=== PATIENT | female | born 1990 | race Two or more races ===

== ENCOUNTER 2018-11-17 16:31 | Emergency (ER) | payer SELFPAY ==
--- NOTE | 2018-11-17 16:53 | ER Document Report ---
ED Medical Screen (RME) - General Chief Complaint: Facial Swelling Stated Complaint: FACIAL SWELLING Time Seen by Provider: 11/17/18 16:35 Mode of Arrival: Ambulatory Information source: Patient Notes: 28-year-old female presented to ED for abscess to the forehead. states she popped a pimple about 2 days ago. Patient states that she developed pain over the last 2 days it is increased and then today her face started becoming very red and swollen. She states the pain is very bad at this time. Patient is alert oriented respirations regular and unlabored speaking in full sentences walks with even steady gait. Patient states she does not smoke drink or do any drugs. She has no past medical or surgical history. Patient has no allergies. I have greeted and performed a rapid initial assessment of this patient. A comprehensive ED assessment and evaluation of the patient, analysis of test results and completion of medical decision making process will be conducted by an additional ED providers. - Related Data Allergies/Adverse Reactions: No Known Allergies Allergy (Verified 11/17/18 16:47) Physical Exam - Vital signs Vitals: Temp Pulse Resp BP Pulse Ox 98.3 F 76 16 115/85 99 11/17/18 16:37 11/17/18 16:37 11/17/18 16:37 11/17/18 16:37 11/17/18 16:37 Course - Vital Signs Vital signs: Temp Pulse Resp BP Pulse Ox 98.3 F 76 16 115/85 99 11/17/18 16:37 11/17/18 16:37 11/17/18 16:37 11/17/18 16:37 11/17/18 16:37
[2018-11-17 17:24] LABS: ABSOLUTE BASOPHILS # (AUTO) 0.1 10^3/uL (0.0-0.2); ABSOLUTE EOSINOPHILS # (AUTO) 0.3 10^3/uL (0.0-0.6); ABSOLUTE LYMPHOCYTES (AUTO) 1.9 10^3/uL (0.5-4.7); ABSOLUTE MONOCYTES (AUTO) 0.7 10^3/uL (0.1-1.4); ABSOLUTE NEUT (AUTO) 7.3 10^3/uL (1.7-8.2); BASOPHILS % (AUTO) 0.7 % (0-2); EOSINOPHILS % (AUTO) 2.7 % (0-6); HEMATOCRIT 44.1 % (36.0-47.0); HEMOGLOBIN 14.9 g/dL (12.0-15.5); MEAN CORPUSCULAR HEMOGLOBIN 29.5 pg (27.0-33.4); MEAN CORPUSCULAR HGB CONC 33.7 g/dL (32.0-36.0); MEAN CORPUSCULAR VOLUME 87 fl (80-97); MONOCYTES % (AUTO) 6.7 % (3-13); PLATELET COUNT 229 10^3/uL (150-450); RED BLOOD COUNT 5.05 10^6/uL (3.72-5.28); RED CELL DISTRIBUTION WIDTH 14.2 % (11.5-14.0); SEGMENTED NEUTROPHILS % (AUTO) 70.9 % (42-78); TOTAL CELLS COUNTED % (AUTO) 100 %; WHITE BLOOD COUNT 10.3 10^3/uL (4.0-10.5)
[2018-11-17 17:44] LABS: ALBUMIN 4.5 g/dL (3.5-5.0); ALKALINE PHOSPHATASE 57 U/L (38-126); ANION GAP 8 (5-19); ASPARTATE AMINO TRANSFERASE 18 U/L (14-36); BILIRUBIN,TOTAL 0.4 mg/dL (0.2-1.3); BLOOD UREA NITROGEN 13 mg/dL (7-20); CALCIUM 9.6 mg/dL (8.4-10.2); CARBON DIOXIDE 29 mmol/L (22-30); CHLORIDE 101 mmol/L (98-107); GLUCOSE 90 mg/dL (75-110); POTASSIUM 4.1 mmol/L (3.6-5.0); TOTAL PROTEIN 7.8 g/dL (6.3-8.2)
--- NOTE | 2018-11-17 18:06 | RADIOLOGY REPORT (SQ) ---
EXAM DESCRIPTION: CT FACIAL AREA WITH COMPLETED DATE/TIME: 11/17/2018 5:39 pm REASON FOR STUDY: facial cellulitis COMPARISON: None. TECHNIQUE: Post contrast images through the facial bones and orbits windowed for bone and soft tissu e. Additional coronal and sagittal reconstructed images reviewed. All images stored on PACS. All CT scanners at this facility use dose modulation, iterative reconstruction, and/or weight based d osing when appropriate to reduce radiation dose to as low as reasonably achievable (ALARA). [facility]: Dose Right [facility]: CareDose [facility]: Dose Right [facility]: Teradose 4D [facility]: AdaptiveBlue CONTRAST TYPE AND DOSE: contrast/concentration: Isovue 350.00 mg/ml; Total Contrast Delivered: 50.0 ml; Total Saline Delivered: 50.0 ml RENAL FUNCTION: GFR > 60. RADIATION DOSE: CT Rad equipment meets quality standard of care and radiation dose reduction techniq ues were employed. CTDIvol: 30.4 mGy. DLP: 566 mGy-cm. . LIMITATIONS: None. FINDINGS: FACIAL BONES: No fracture. ORBITS: Intact. The globes, extraocular muscles, and optic nerve sheath complexes are symmetric and normal in appearance. PARANASAL SINUSES: Clear. There is no paranasal sinus air-fluid level. SOFT TISSUES: Mild skin thickening and mild subcutaneous fat stranding over the frontal sinuses ; the re is no rim enhancing collection in the area. INFERIOR BRAIN: No acute findings. OTHER: No other finding. IMPRESSION: Mild skin thickening and mild subcutaneous fat stranding over the frontal sinuses ; ther e is no rim enhancing collection in the area. TECHNICAL DOCUMENTATION: JOB ID: [id number] Quality ID # [id number]: Final reports with documentation of one or more dose reduction techniques (e.g., Au tomated exposure control, adjustment of the mA and/or kV according to patient size, use of iterative reconstruction technique) 2010 [employer]- All Rights Reserved Reading location - IP/workstation name: [email or web address]
--- NOTE | 2018-11-17 18:30 | ER Document Report ---
ED Skin Rash/Insect Bite/Abscs - General Chief Complaint: Abscess Stated Complaint: FACIAL SWELLING Time Seen by Provider: 11/17/18 16:35 Mode of Arrival: Ambulatory Notes: Patient is a 28-year-old female presents to the emergency department with a chief complaint of facial pain. Patient reports 2 to 3 days ago she had a pimple on the center of her forehead in between her eyebrows. Patient reports that over the past few days is gotten more swollen and tender. Patient reports that she has had some swelling noted around her eyes. Patient denies visual changes. Patient denies fever. Patient reports that she has not taken anything for the pain. Patient denies nasal drainage. Patient reports having a frontal headache around the site of possible infection. Patient denies chills. She denies drainage from the pimple. - Related Data Allergies/Adverse Reactions: No Known Allergies Allergy (Verified 11/17/18 16:47) Past Medical History - General Information source: Patient - Social History Smoking Status: Never Smoker Frequency of alcohol use: None Drug Abuse: None Lives with: Spouse/Significant other Family History: None Patient has suicidal ideation: No Patient has homicidal ideation: No - Past Medical History Cardiac Medical History: Reports: None Pulmonary Medical History: Reports: None EENT Medical History: Reports: None Neurological Medical History: Reports: None Endocrine Medical History: Reports: None Renal/ Medical History: Reports: None Malignancy Medical History: Reports: None GI Medical History: Reports: None Musculoskeletal Medical History: Reports None Skin Medical History: Reports None Psychiatric Medical History: Reports: None Traumatic Medical History: Reports: None Infectious Medical History: Reports: None Surgical Hx: Negative Review of Systems - Review of Systems Constitutional: No symptoms reported EENT: See HPI Cardiovascular: No symptoms reported Respiratory: No symptoms reported Gastrointestinal: No symptoms reported Genitourinary: No symptoms reported Female Genitourinary: No symptoms reported Musculoskeletal: No symptoms reported Skin: See HPI Hematologic/Lymphatic: No symptoms reported Neurological/Psychological: No symptoms reported Physical Exam - Vital signs Vitals: Temp Pulse Resp BP Pulse Ox 98.3 F 76 16 115/85 99 11/17/18 16:37 11/17/18 16:37 11/17/18 16:37 11/17/18 16:37 11/17/18 16:37 Interpretation: Normal - Notes Notes: GENERAL: Well-appearing, well-nourished and in no acute distress. HEAD: Atraumatic, normocephalic. Patient has a crusted over lesion noted in between her eyes in the front of her forehead, no drainage. There is a surrounding cellulitis that extends around bilateral eyes. Eyes slightly swollen, but not swollen shut. No drainage from the eyes. EYES: Pupils equal round and reactive to light, extraocular movements intact, sclera anicteric, conjunctiva are normal. ENT: TMs normal, nares patent, oropharynx clear without exudates. Moist mucous membranes. NECK: Normal range of motion, supple without lymphadenopathy or JVD. LUNGS: Breath sounds clear to auscultation bilaterally and equal. No wheezes rales or rhonchi. HEART: Regular rate and rhythm without murmurs, rubs or gallops. ABDOMEN: Soft, nontender, normoactive bowel sounds. No guarding, no rebound. No masses appreciated. BACK: No cervical, thoracic, lumbar midline tenderness. No saddle anesthesia, normal distal neurovascular exam. GENITOURINARY: Deferred. EXTREMITIES: Normal range of motion, no pitting or edema. No clubbing or cyanosis. NEUROLOGICAL: Cranial nerves II through XII grossly intact. Normal speech, normal gait. PSYCH: Normal mood, normal affect. SKIN: Warm, Dry, normal turgor, no rashes or lesions noted. Course - Re-evaluation Re-evalutation: 11/17/18 18:33 Patient's blood work is unremarkable without a leukocytosis. Patient is not tachycardic, hypotensive or febrile. Patient's CAT scan did not show any absc ess. Will give IV Decadron, Toradol and an IV dose of clindamycin prior to discharge. Patient will be placed on strict return precautions. We will place the patient on clindamycin for 7 days. I have discussed the plan with the patient and significant other. 11/17/18 19:44 After receiving the IV Decadron and Toradol patient reports feeling significantly better. Patient is receiving her first dose of clindamycin. I did give the patient strict return precautions. Patient to return if anything worsens or changes. - Vital Signs Vital signs: Temp Pulse Resp BP Pulse Ox 98.3 F 76 16 115/85 99 11/17/18 16:37 11/17/18 16:37 11/17/18 16:37 11/17/18 16:37 11/17/18 16:37 - Laboratory Result Diagrams: 11/17/18 17:10 11/17/18 17:10 Laboratory results interpreted by me: 11/17/18 17:10 RDW 14.2 H - Diagnostic Test Radiology reviewed: Reports reviewed Radiology results interpreted by me: 11/17/18 18:[address] 11/17/18 16:50 IMPRESSION: Mild skin thickening and mild subcutaneous fat stranding over the frontal sinuses ; there is no rim enhancing collection in the area. Discharge - Discharge Clinical Impression: Facial cellulitis Condition: Stable Disposition: HOME, SELF-CARE Additional Instructions: Today you are seen in the emergency department for a possible infection to the face. It does look like the area where you attempted to pop a pimple is not infected. We did do a CAT scan which did not show an underlying abscess. It does appear that you have a cellulitis which is an infection of the skin and underlying soft tissues. This is due to bacteria which probably did into your skin when you attempted to pop the pimple. We have given you Decadron which is an IV steroid, Toradol which is an anti-inflammatory and a dose of IV antibiotics. You will be placed on oral antibiotics for 1 week. The medication is called clindamycin. You will take this 3 times a day. Please return to the emergency department if you do develop worsening redness, swelling of the eyes, fever, drainage from the site or any worsening signs or symptoms. Cellulitis You have an infection of your skin and underlying soft tissues called cellulitis. This is due to bacteria, which can enter through any break in the skin, or even through an irritated hair follicle. Untreated, cellulitis will usually worsen. Antibiotics are required. Usually, warm packs or warm soaks, and elevation of the infected area are recommended. You should start getting better within 24 to 36 hours. Most infections respond quickly to the right medication. Follow-up care is important, however, to check for abscess (boil) formation, unsuspected foreign body, or resistant infection. If you develop fever, chills, or if the area of infection is becoming rapidly more swollen or painful, call the doctor at once. Prescriptions: Clindamycin HCl [Cleocin HCl] 450 mg PO TID 7 Days #63 capsule Ibuprofen [Motrin 800 mg Tablet] 800 mg PO Q8H PRN #30 tab PRN Reason:
[2018-11-17] MEDS ORDERED: KETOROLAC TROMETHAMINE INJ/PF 30 MG/1 ML SDV IV ONE (18:32)
[2018-11-17] MEDS ORDERED: DEXAMETHASONE SOD PHOS INJ 10 MG/1 ML VIAL IV ONE (18:32)
[2018-11-17] MEDS ORDERED: CLINDAMYCIN 600 MG/D5W RTU 600 MG/50 ML RTUPB IV ONE (18:33)
[2018-11-17 20:36] VITALS: BP 114/61
== END 2018-11-17 20:36 | disposition home or self-care (01) ==
LOC: ER 16:31
DX: L03.211 Cellulitis of face (principal); R51 Headache
CPT/HCPCS: 99284; 96375; 96365; 36415; 84703; 85025; 80053; 70487; J1885; J1100